=== PATIENT | male | born 1970 | race Caucasian/White ===

== ENCOUNTER 2017-02-20 00:02 | Inpatient (IN) | payer OTHER ==
[2017-02-20] VITALS (8 sets, daily range): BP systolic 138–158; BP diastolic 79–85; PULSE 69–80; RESP 13–18; TEMP 97–98.8; O2SAT 96–100
[~2017-02-20] VITALS: Ht 177.8 cm; Wt 95.0 kg
[2017-02-20] MEDS ORDERED: ceFAZolin 2 GM PREMIX 50 ML ONE ×2 (00:10→10:19)
[2017-02-20] MEDS ORDERED: DIPHTH/TETANUS/ACEL PERTUSSIS (BOOSTER) 0.5 ML VIAL/PFS IM ONE ×2 (00:10→01:18)
[2017-02-20] MEDS ORDERED: ONDANSETRON HCL 4 MG/2 ML VIAL ONE (00:10)
[2017-02-20] MEDS ORDERED: MORPHINE SULFATE 8 MG/ML INJ ONE ×2 (00:10→00:19)
[2017-02-20 00:23] LABS: I-STAT POTASSIUM 3.5 MMOL/L (3.5-4.9); I-STAT SODIUM 143 MMOL/L (138-146)
[2017-02-20] MEDS ORDERED: CHLORHEXIDINE GLUCONATE 2 % 1 PACK (2 CLOTHS) TOP PRN (00:30)
[2017-02-20] MEDS ORDERED: ENALAPRILAT 1.25 MG/ML VIAL IV PRN (00:30)
[2017-02-20] MEDS ORDERED: NALOXONE HCL 0.4 MG/ML AMP IV PUSH PRN (00:30)
[2017-02-20] MEDS ORDERED: MAGNESIUM HYDROXIDE SUSP 30 ML CUP PO PRN (00:30)
[2017-02-20] MEDS ORDERED: MISCELLANEOUS NURSING INFORMATION XX SCH (00:30)
[2017-02-20] MEDS ORDERED: ceFAZolin 2 GM PREMIX 50 ML IV STA (00:30)
[2017-02-20] MEDS ORDERED: SODIUM CHLORIDE 0.9% FLUSH 10 ML FLUSH IV FLUSH PRN (00:30)
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
[2017-02-20 00:33] LABS: AUTOMATED NEUTROPHIL # 5.6 TH/MM3 (1.8-7.7); BASOPHIL # 0.1 TH/MM3 (0-0.2); BASOPHIL % 0.7 % (0.0-2.0); EOSINOPHIL # 0.4 TH/MM3 (0-0.4); EOSINOPHIL % 3.8 % (0.0-4.0); HEMATOCRIT 45.5 % (39.0-51.0); HEMO FLAGS DIFF FINAL; LYMPH % 38.1 % (9.0-44.0); LYMPHOCYTE # 4.5 TH/MM3 (1.0-4.8); MEAN CELL VOLUME 92.2 FL (80.0-100.0); MEAN CORPUSCULAR HEMOGLOBIN 31.4 PG (27.0-34.0); MONO % 9.8 % (0.0-8.0); NEUT % 47.6 % (16.0-70.0); PLATELET COUNT 254 TH/MM3 (150-450); RED BLOOD COUNT 4.93 MIL/MM3 (4.50-5.90); RED CELL DISTRIBUTION WIDTH 13.3 % (11.6-17.2); WHITE BLOOD COUNT 11.7 TH/MM3 (4.0-11.0)
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
[2017-02-20 00:41] LABS: APTT (PATIENT) 21.2 SEC (24.3-30.1); INTERNATIONAL NORMALIZED RATIO 0.9 RATIO; PROTHROMBIN TIME - PATIENT 10.1 SEC (9.8-11.6)
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
[2017-02-20 00:45] LABS: ALCOHOL LESS THAN 3 MG/DL (0-5)
[2017-02-20] MEDS ORDERED: IOHEXOL 350 MG/ML 10 ML VIAL (for RAD DIAG) IVCONTRAST ONE (00:45)
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
[2017-02-20] MEDS: MORPHINE SULFATE 30 MG/30 ML PCA IV SCH (01:29)
[2017-02-20] MEDS ORDERED: ONDANSETRON HCL 4 MG/2 ML VIAL IV ONE (01:30)
[2017-02-20] MEDS ORDERED: MORPHINE SULFATE 4 MG/ML INJ IV ONE (01:30)
[2017-02-20] MEDS: CHLORHEXIDINE GLUCONATE 2 % 1 PACK (2 CLOTHS) TOP SCH (04:00)
[2017-02-20] MEDS: PCA - TOTAL MG MORPHINE DELIVERED PER SHIFT SCH ×2 (06:00→22:00)
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
[2017-02-20] MEDS: PANTOPRAZOLE SODIUM 40 MG VIAL IVP SCH (07:05)
[2017-02-20] MEDS: SODIUM CHLOR 0.9% 1000 ML INJ 1,000 ML IV SCH ×2 (07:07→20:27)
[2017-02-20] MEDS ORDERED: LACTULOSE SYRUP 20 GM/30 ML CUP PO PRN (07:45)
[2017-02-20] MEDS: DOCUSATE SODIUM 50 MG/SENNA 8.6 MG TAB PO SCH ×2 (08:37→20:12)
[2017-02-20] MEDS: BACITRACIN TOP OINT 15 GM TUBE TOP SCH ×2 (08:37→22:04)
[2017-02-20] MEDS ORDERED: SODIUM CHLOR 0.9% 250 ML INJ 250 ML ONE (09:08)
[2017-02-20] MEDS ORDERED: VANCOMYCIN HCL 1000 MG VIAL ONE (09:08)
[2017-02-20] MEDS ORDERED: GENTAMICIN SULFATE 80 MG/2 ML VIAL ONE (09:08)
[2017-02-20] MEDS ORDERED: FAMOTIDINE 20 MG/2 ML VIAL ONE (09:25)
[2017-02-20] MEDS ORDERED: ACETAMINOPHEN 1000 MG/100 ML 100 ML IV ONE ×2 (09:25→09:56)
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
[2017-02-20] MEDS ORDERED: LIDOCAINE HCL 1% PF 5 ML AMPULE OTHER ONE (12:00)
[2017-02-20] MEDS ORDERED: DEXAMETHASONE SOD PHOS 4 MG/ML VIAL IV ONE (12:00)
[2017-02-20] MEDS ORDERED: KETOROLAC TROMETHAMINE 30 MG/ML (IVP) VIAL IV PUSH ONE (12:00)
[2017-02-20] MEDS ORDERED: diphenhydrAMINE HCL 25 MG CAP PO PRN (12:00)
[2017-02-20] MEDS ORDERED: ONDANSETRON HCL 4 MG/2 ML VIAL IV PUSH ONE (12:00)
[2017-02-20] MEDS ORDERED: PHENYLEPH/NS 1000 MCG/10 ML SYR IV ONE (12:00)
[2017-02-20] MEDS ORDERED: PROPOFOL 200 MG/20 ML AMP IV ONE (12:00)
[2017-02-20] MEDS ORDERED: ERGOCALCIFEROL (VIT D2) 50,000 UNIT CAP PO SCH (12:00)
[2017-02-20] MEDS ORDERED: LACTATED RINGER'S 1000 ML INJ 1,000 ML IV ONE (12:00)
[2017-02-20] MEDS ORDERED: MIDAZOLAM HCL 2 MG/2 ML VIAL IV ONE (12:00)
[2017-02-20] MEDS ORDERED: MORPHINE SULFATE 4 MG/ML INJ IV PUSH PRN (12:00)
--- NOTE | 2017-02-20 12:02 | PD.OP ---
cc: Ricardo Langley MD Operative Report Date of Surgery: Feb 20, 2017 Preoperative Diagnosis: Segmental left tibia shaft fracture, nondisplaced medial malleolus fracture Postoperative Diagnosis: Procedure: Reduction and intramedullary nail fixation left tibia Anesthesia: Gen. Surgeon: Ricardo Langley Practical Nursing Teacher(s): KOLE Cowan PA-C The surgical procedure was assisted by my physician assistant foreman. My P.A. presence was necessary throughout this case for the manipulation and positioning of the surgical extremity. My P.A. was assisting me throughout the duration of this procedure. The skill set of a physician assistant foreman was medically necessary to complete this procedure. During the surgical case the reliability technicians was working at the back table and the physician assistant foreman was directly assisting me. Operation and Findings: Implants: ITS [10]mm x [360]mm tibial nail Plan of activity: Nonweightbearing left leg Patient was seen and examined preoperatively. An informed consent was obtained from patient after detailed discussion of risk and benefits. Risks of surgery include bleeding, infection, painful hardware, nonunion, malunion, leg length discrepancy, need for hardware removal, and medical complications associated with anesthesia including blood clots, stroke, heart attack, and were discussed. Operative site was marked. Patient was brought to the operating room placed on or table. Patient received IV antibiotics and was given IV sedation GETA. Left leg was prepped with alcohol Hibiclens and draped in usual sterile fashion. Timeout procedure was performed Procedure began with reduction of fracture. Patient had a proximal and distal tibia shaft fracture. 2 small incisions were made around both the proximal and distal fracture sites. Percutaneous clamps were placed. Traction was applied. Fractures were reduced. There was comminution of the fracture. The fractures reduced and excellent alignment was achieved. Fracture clamps were used to aid in reduction. Next a 3 cm incision was made proximal to the patella. Quadriceps tendon was split in line with fibers. Cannulas were placed in the patellofemoral joint to protect the articular surface at all times. A guidepin was placed into the tibia and advanced in the tibial canal. Fluoroscopy was used to confirm appropriate guidepin placement. An opening reamer was used to open the tibial canal. A ball-tipped guidewire was advanced down the tibial canal. Guidepin was passed across the fracture site into the center of the distal tibia. Fluoroscopy confirmed guidepin placement. The nail length was now measured. At this point the locking screws were placed into the proximal segment and distal segment to help maintain alignment of the fracture. The fracture was now held in a reduced position and the canal was reamed. The canal was reamed up to appropriate size. A ITS nail was now selected. Next the nail was fully seated. Using perfect reno-sparks technique 3 distal interlocking screws were placed. Using the insertion handle as a guide 3 proximal interlocking screws were placed. Fluoroscopy confirmed excellent of fracture with well-placed hardware. Patient also had a minimally displaced medial malleolus fracture. This will be treated closed. Incisions and the knee joint were thoroughly irrigated with sterile saline. Fascia was closed with #1 Vicryl, subcutaneous tissues closed with 3-0 Vicryl and skin was closed with angelina. Sterile dressings were applied. Patient was awakened and transferred to recovery in stable condition. Ricardo Langley MD Feb 20, 2017 12:02
[2017-02-20] MEDS: LACTATED RINGER'S 1000 ML INJ 1,000 ML IV SCH ×2 (12:30→22:04)
[2017-02-20] MEDS: CALCIUM/VITAMIN D 250 MG/125 U TAB PO SCH ×2 (13:00→18:00)
--- NOTE | 2017-02-20 13:31 | RADRPT ---
EXAM DATE/TIME: 02/20/2017 11:37 [facility] COMPARISON: No previous studies available for comparison. INDICATIONS : ORIF left tibia fracture. MEDICAL HISTORY : Unobtainable. SURGICAL HISTORY : Unobtainable. ENCOUNTER: Subsequent ACUITY: 2 days PAIN SCORE: Non-responsive. LOCATION: Left tibia. FINDINGS: Intramedullary hemalatha is present. Alignment is anatomic. Locking pins are seen above and below the fra cture. CONCLUSION: Anatomic alignment. Feliciano Reveles MD FACR on February 20, 2017 at 13:29 Board Certified Radiologist. This report was verified electronically.
[2017-02-20] MEDS ORDERED: *LABETALOL HCL 100 MG/20 ML VIAL PERIprocedural Use ONLY ONE (14:46)
--- NOTE | 2017-02-20 15:50 | OTSOAPIP ---
TIME SESSION COMPLETED: PM RECEIVED OCCUPATIONAL THERAPY ORDERS. ATTEMPTED TO SEE PATIENT, HOWEVER PATIENT REMAINS OFF FLOOR POST SURGERY ANESTHESIA. INTERDISCIPLINARY COMMUNICATION: REVIEWED ELECTRONIC MEDICAL RECORD Therapist: Tessa Kingston OTR/Sarah Signature on file
[2017-02-20] MEDS ORDERED: SENN1TAB PO (16:23)
[2017-02-20] MEDS: ceFAZolin 2 GM PREMIX 50 ML IV SCH (19:28)
[2017-02-20] MEDS: ONDANSETRON HCL 4 MG/2 ML VIAL IV PRN (19:28)
[2017-02-20] MEDS ORDERED: DOCUSATE SODIUM 100 MG CAP PO SCH (21:00)
[2017-02-20] MEDS: VANCOMYCIN INJ 1,000 MG in SODIUM CHLOR 0.9% 250 ML INJ 250 ML IV SCH (22:04)
[2017-02-20] MEDS: ENOXAPARIN SODIUM 40 MG/0.4 ML SYRINGE SQ SCH (23:51)
[2017-02-21] VITALS: BP 120/73; PULSE 73; RESP 17; TEMP 96.4; O2SAT 100
[2017-02-21] MEDS: MORPHINE SULFATE 30 MG/30 ML PCA IV SCH (00:12)
[2017-02-21] MEDS: PANTOPRAZOLE SODIUM 40 MG VIAL IVP SCH (01:34)
[2017-02-21] MEDS: ceFAZolin 2 GM PREMIX 50 ML IV SCH ×2 (01:34→08:10)
[2017-02-21] MEDS: SODIUM CHLOR 0.9% 1000 ML INJ 1,000 ML IV SCH (03:07)
[2017-02-21 04:00] VITALS: BP 142/79; PULSE 70; RESP 16; TEMP 98.5; O2SAT 99
[2017-02-21] MEDS: CHLORHEXIDINE GLUCONATE 2 % 1 PACK (2 CLOTHS) TOP SCH (04:00)
[2017-02-21] MEDS: PCA - TOTAL MG MORPHINE DELIVERED PER SHIFT SCH ×2 (05:53→06:00)
[2017-02-21] MEDS ORDERED: XARE10TA PO (06:36)
[2017-02-21] MEDS ORDERED: WALKER/ADULT/FO1 MIS (06:36)
[2017-02-21] MEDS ORDERED: HYDR-3583 PO (06:36)
--- NOTE | 2017-02-21 06:39 | PD.ORT.PN ---
Subjective Subjective Remarks POD 1 s/p IMN left tibia s/p left foot pain and swelling Objective Vitals Vital Signs Date Time Temp Pulse Resp B/P (MAP) Pulse Ox O2 Delivery O2 Flow Rate FiO2 02/21/17 06:00 17 02/21/17 04:00 98.5 70 16 142/79 (100) 99 02/21/17 00:25 17 02/21/17 00:12 18 02/21/17 00:00 96.4 73 17 120/73 (89) 100 02/20/17 22:00 17 02/20/17 20:32 97 21 02/20/17 20:00 96 Room Air 02/20/17 19:00 97.0 80 17 138/79 (98) 96 02/20/17 16:00 98.8 78 18 158/81 (106) 97 02/20/17 16:00 98.2 70 14 141/81 (101) 100 Room Air 02/20/17 15:30 63 14 153/84 (107) 100 Room Air 02/20/17 15:00 61 14 168/94 (118) 100 Nasal Cannula 2 02/20/17 14:30 68 14 181/99 (126) 100 Nasal Cannula 2 02/20/17 14:00 73 14 167/102 (123) 100 Nasal Cannula 2 02/20/17 13:30 77 14 164/100 (121) 100 Nasal Cannula 2 02/20/17 13:15 70 14 162/96 (118) 100 Nasal Cannula 2 02/20/17 13:00 72 14 169/93 (118) 99 Nasal Cannula 2 02/20/17 12:45 72 14 159/86 (110) 99 Nasal Cannula 3 02/20/17 12:30 83 14 152/89 (110) 98 Nasal Cannula 3 02/20/17 12:26 98.3 95 14 166/102 (123) 96 Nasal Cannula 3 02/20/17 08:45 98 Room Air 02/20/17 08:00 98.2 71 13 155/85 (108) 100 02/20/17 08:00 69 02/20/17 07:00 99 Nasal Cannula 2.00 21 I/O 02/20/17 02/20/17 02/20/17 02/21/17 02/21/17 02/21/17 07:00 15:00 23:00 07:00 15:00 23:00 Intake Total 1541 ml 1279 ml 1672 ml Output Total 1000 ml 50 ml 650 ml 950 ml Balance -1000 ml 1491 ml 629 ml 722 ml Intake Oral 480 ml 480 ml IV Total 291 ml 799 ml 1192 ml Other 1250 ml Output Urine Total 1000 ml 650 ml 950 ml Estimated Blood Loss 50 ml # Voids 1 # Bowel Movements 0 0 Result Diagram: 02/20/17 0007 Objective Remarks LLE: dressings clean and dry. intact. +short leg splint. NVI. notable swelling in foot Assessment & Plan Assessment and Plan 1) Left Tibia Fx s/p IMN - POD 1 -NWB -maintain splint -elevate -laney order xrays of left foot today due to swelling and bruising -scripts on chart -plan for DC home tomorrow if doing well -f/u with Jose or JAYRO in 2 weeks Rey Chacon Feb 21, 2017 06:39
[2017-02-21 07:03] LABS: AUTOMATED NEUTROPHIL # 5.6 TH/MM3 (1.8-7.7); BASOPHIL # 0.3 TH/MM3 (0-0.2); EOSINOPHIL # 0.1 TH/MM3 (0-0.4); EOSINOPHIL % 0.9 % (0.0-4.0); HEMATOCRIT 34.1 % (39.0-51.0); HEMO FLAGS DIFF FINAL; LYMPH % 19.6 % (9.0-44.0); LYMPHOCYTE # 1.7 TH/MM3 (1.0-4.8); MEAN CELL VOLUME 93.9 FL (80.0-100.0); MEAN CORPUSCULAR HGB CONC 34.1 % (32.0-36.0); MONO % 10.2 % (0.0-8.0); NEUT % 66.3 % (16.0-70.0); PLATELET COUNT 162 TH/MM3 (150-450); RED BLOOD COUNT 3.63 MIL/MM3 (4.50-5.90); RED CELL DISTRIBUTION WIDTH 13.5 % (11.6-17.2); WHITE BLOOD COUNT 8.5 TH/MM3 (4.0-11.0)
[2017-02-21 07:36] LABS: BICARBONATE 26.1 MEQ/L (21.0-32.0); POTASSIUM 3.9 MEQ/L (3.5-5.1)
[2017-02-21 08:00] VITALS: BP 123/73; PULSE 70; RESP 16; TEMP 97.5; O2SAT 97
[2017-02-21] MEDS: CALCIUM/VITAMIN D 250 MG/125 U TAB PO SCH ×3 (08:02→17:08)
[2017-02-21] MEDS: CHOLECALCIFEROL (VIT D3) 1000 UNIT TAB PO SCH (08:02)
[2017-02-21] MEDS: DOCUSATE SODIUM 50 MG/SENNA 8.6 MG TAB PO SCH ×2 (08:03→20:01)
[2017-02-21] MEDS: ASCORBIC ACID 500 MG TAB PO SCH (08:03)
[2017-02-21] MEDS: BACITRACIN TOP OINT 15 GM TUBE TOP SCH ×2 (08:04→20:04)
[2017-02-21] MEDS: FAMOTIDINE 20 MG TAB PO SCH ×2 (08:09→20:01)
[2017-02-21] MEDS: LACTULOSE SYRUP 20 GM/30 ML CUP PO SCH (08:10)
[2017-02-21] MEDS ORDERED: ALLO300T2 PO (08:24)
[2017-02-21] MEDS ORDERED: LISI40TA PO (08:25)
[2017-02-21] MEDS ORDERED: ATOR20TA15 PO (08:25)
--- NOTE | 2017-02-21 09:31 | RADRPT ---
EXAM DATE/TIME: 02/21/2017 08:31 [facility] COMPARISON: TIBIA/FIBULA LEFT (AP/LAT), February 20, 2017, 11:37. INDICATIONS : Evaluate left foot fractures. MEDICAL HISTORY : None. SURGICAL HISTORY : ORIF left lower leg. ENCOUNTER: Initial ACUITY: 2 days PAIN SCORE: 6/10 LOCATION: Left foot. FINDINGS: Three view examination of the left foot demonstrates a displaced intra-articular fracture at involvin g the fifth metatarsal head. No dislocation. There is hemalatha and screw fixation of the distal tibia. The re is a questionable fracture of the fourth metatarsal head as well. CONCLUSION: 1. Intra-articular fracture of the fifth left metatarsal head and possibly the fourth metatarsal head as well. Michael Cantor MD on February 21, 2017 at 9:26 Board Certified Radiologist. This report was verified electronically.
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
[2017-02-21 12:00] VITALS: BP 135/82; PULSE 87; RESP 16; TEMP 98; O2SAT 95
[2017-02-21] MEDS: ONDANSETRON HCL 4 MG/2 ML VIAL IV PRN (12:00)
[2017-02-21] MEDS: VANCOMYCIN INJ 1,000 MG in SODIUM CHLOR 0.9% 250 ML INJ 250 ML IV SCH (12:00)
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
[2017-02-21 16:00] VITALS: BP 154/82; PULSE 71; RESP 16; TEMP 96.5; O2SAT 99
[2017-02-21] MEDS: ACETAMINOPHEN/HYDROcodone 325 MG/10 MG TAB PO PRN ×3 (17:00→23:49)
[2017-02-21] MEDS: ALLOPURINOL 300 MG TAB PO SCH (17:08)
[2017-02-21] MEDS: LISINOPRIL 20 MG TAB PO SCH (17:08)
[2017-02-21 19:00] VITALS: BP 122/63; PULSE 82; RESP 18; TEMP 98.2; O2SAT 98
[2017-02-21] MEDS ORDERED: MAGNESIUM HYDROXIDE SUSP 30 ML CUP PO SCH (21:00)
[2017-02-21] MEDS ORDERED: ATORVASTATIN 20 MG TAB PO SCH (21:00)
[2017-02-21] MEDS: ENOXAPARIN SODIUM 40 MG/0.4 ML SYRINGE SQ SCH (23:48)
[2017-02-22] VITALS: BP 135/65; PULSE 81; RESP 15; TEMP 97.8; O2SAT 97
[2017-02-22] MEDS: ACETAMINOPHEN/HYDROcodone 325 MG/10 MG TAB PO PRN ×5 (03:44→17:12)
--- NOTE | 2017-02-22 06:23 | PD.ORT.PN ---
Subjective Subjective Remarks Pain controlled. No new complaints Objective Vitals Vital Signs Date Time Temp Pulse Resp B/P (MAP) Pulse Ox O2 Delivery O2 Flow Rate FiO2 02/22/17 00:00 97.8 81 15 135/65 (88) 97 02/21/17 20:00 98 Room Air 02/21/17 19:00 98.2 82 18 122/63 (82) 98 02/21/17 16:00 96.5 71 16 154/82 (106) 99 02/21/17 12:00 98.0 87 16 135/82 (99) 95 02/21/17 08:00 97.5 70 16 123/73 (90) 97 I/O 02/21/17 02/21/17 02/21/17 02/22/17 02/22/17 02/22/17 07:00 15:00 23:00 07:00 15:00 23:00 Intake Total 1672 ml 700 ml 730 ml 480 ml Output Total 950 ml 1200 ml 700 ml 950 ml Balance 722 ml -500 ml 30 ml -470 ml Intake Oral 480 ml 600 ml 480 ml 480 ml IV Total 1192 ml 100 ml 250 ml Output Urine Total 950 ml 1200 ml 700 ml 950 ml # Bowel Movements 0 0 0 0 Result Diagram: 02/21/17 0552 02/21/17 0552 Imaging Last 72 hours Impressions Hand X-Ray 02/21/17 0000 Signed Impressions: Service Date/Time: February 12:31 - CONCLUSION: 1. No acute findings. Michael Cantor MD Foot X-Ray 02/21/17 0000 Signed Impressions: Service Date/Time: February 08:31 - CONCLUSION: 1. Intra-articular fracture of the fifth left metatarsal head and possibly the fourth metatarsal head as well. Michael Cantor MD Pelvis X-Ray 02/20/17 000 Signed Impressions: Service Date/Time: Sunday, February 19, 2017 23:57 - CONCLUSION: Unremarkable examination of the pelvis. David Devi Jr., MD Head CT 02/20/175 Signed Impressions: Service Date/Time: Monday, February 20, 2017 00:25 - CONCLUSION: Normal examination. David Devi Jr., MD Chest X-Ray 02/20/175 Signed Impressions: Service Date/Time: Sunday, February 19, 2017 23:57 - CONCLUSION: No acute disease. Study is motion degraded. David Devi Jr., MD Chest CT 02/20/175 Signed Impressions: Service Date/Time: Monday, February 20, 2017 00:31 - CONCLUSION: 1. Left scapular fracture. Otherwise, unremarkable exam. David Devi Jr., MD Cervical Spine CT 02/20/175 Signed Impressions: Service Date/Time: Monday, February 20, 2017 00:25 - CONCLUSION: 1. No fracture or dislocation. 2. Degenerative changes at C5-C6 and C6-C7. David Devi Jr., MD Abdomen/Pelvis CT 02/20/175 Signed Impressions: Service Date/Time: Monday, February 20, 2017 00:31 - CONCLUSION: Normal examination. David Devi Jr., MD Tibia/Fibula X-Ray 02/20/17 Signed Impressions: Service Date/Time: Monday, February 20, 2017 11:37 - CONCLUSION: Anatomic alignment. Feliciano Reveles MD FACR Tibia/Fibula X-Ray 02/20/17 Signed Impressions: Service Date/Time: Sunday, February 19, 2017 23:57 - CONCLUSION: Multiple fractures as detailed above. David Devi Jr., MD Knee X-Ray 02/20/17 Signed Impressions: Service Date/Time: Sunday, February 19, 2017 23:57 - CONCLUSION: No gross abnormality on this single limited view of the right knee. David Devi Jr., MD Foot X-Ray 02/20/17 Signed Impressions: Service Date/Time: Sunday, February 19, 2017 23:57 - CONCLUSION: No gross abnormality on this limited single projection. David Devi Jr., MD Aorta w/Runoff CTA 02/20/17 Signed Impressions: Service Date/Time: Monday, February 20, 2017 00:31 - CONCLUSION: 1. The fracture involving the tibia affects the anterior tibial artery with a 4 cm segment of occlusion. There is reconstitution with patency to the dorsalis pedis artery. Peroneal and posterior tibial artery are patent. 2. Patent inflow, a flow, and runoff on the right. David Devi Jr., MD Objective Remarks Left lower extremity: Clean dry dressings intact. Splint in place. Intact sensation in all toes. Good capillary refills Assessment & Plan Assessment and Plan 1) Left Tibia Fx s/p IMN - POD 2 -NWB -maintain splint -elevate -scripts on chart -plan for DC home today if doing well -f/u with [facility] or [facility] in 2 weeks 2) left scapula fracture Nonoperative treatment. May be weightbearing as tolerated for ambulation using a walker Karl Ho Jr. Feb 22, 2017 06:23
[2017-02-22] MEDS ORDERED: WHEEMIS3 (06:25)
[2017-02-22 08:00] VITALS: BP 134/68; PULSE 82; RESP 18; TEMP 97.5; O2SAT 98
[2017-02-22] MEDS: ALLOPURINOL 300 MG TAB PO SCH (10:01)
[2017-02-22] MEDS: LACTULOSE SYRUP 20 GM/30 ML CUP PO SCH (10:01)
[2017-02-22] MEDS: FAMOTIDINE 20 MG TAB PO SCH (10:02)
[2017-02-22] MEDS: CHOLECALCIFEROL (VIT D3) 1000 UNIT TAB PO SCH (10:02)
[2017-02-22] MEDS: CALCIUM/VITAMIN D 250 MG/125 U TAB PO SCH ×3 (10:02→17:12)
[2017-02-22] MEDS: DOCUSATE SODIUM 50 MG/SENNA 8.6 MG TAB PO SCH (10:02)
[2017-02-22] MEDS: LISINOPRIL 20 MG TAB PO SCH (10:02)
[2017-02-22] MEDS: ASCORBIC ACID 500 MG TAB PO SCH (10:03)
[2017-02-22] MEDS: BACITRACIN TOP OINT 15 GM TUBE TOP SCH (10:05)
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
[2017-02-22 12:00] VITALS: BP 107/56; PULSE 76; RESP 18; TEMP 97.3; O2SAT 100
[2017-02-22 16:00] VITALS: BP 112/59; PULSE 74; RESP 18; TEMP 96.7; O2SAT 98
== END 2017-02-22 17:37 | disposition home or self-care (01) | DRG 493 ==
LOC: NEPI 00:02 → EDBD 00:59 → NEDA 00:59 → N03A 01:03 → N06B 13:00 → N06A 16:20 → UNDODISIN 02-21 13:08
PROVIDERS: ADMIT Surgery; ATTEND Surgery
PROC: 0QSHXZZ Reposition Left Tibia, External Approach (ICD-10-PCS; 2017-02-20)
PROC: 0QSH06Z Reposition Left Tibia with Intramedullary Internal Fixation Device, Open Approach (ICD-10-PCS; principal; 2017-02-20 10:14)
DX: S82.262A Displaced segmental fracture of shaft of left tibia, initial encounter for closed fracture (principal); S06.0X1A Concussion with loss of consciousness of 30 minutes or less, initial encounter; I10 Essential (primary) hypertension; S42.192A Fracture of other part of scapula, left shoulder, initial encounter for closed fracture; S82.55XA Nondisplaced fracture of medial malleolus of left tibia, initial encounter for closed fracture; E78.5 Hyperlipidemia, unspecified; M10.9 Gout, unspecified; K21.9 Gastro-esophageal reflux disease without esophagitis; I77.1 Stricture of artery; S92.342A Displaced fracture of fourth metatarsal bone, left foot, initial encounter for closed fracture; S92.352A Displaced fracture of fifth metatarsal bone, left foot, initial encounter for closed fracture; V23.4XXA Motorcycle driver injured in collision with car, pick-up truck or van in traffic accident, initial encounter
CPT/HCPCS: 70450; 71010; 71260; 72125; 72170; 73130; 73560; 73590; 73630; 74177; 75635; 76000; 80048; 80307; 82435; 82565; 82947; 84132; 84295; 84520; 85025; 85384; 85610; 85730; 86850; 86900; 86901; 86920; 87641; 90471; 90715; 94150; 96374; 96375; 99291; C1713; C9113; G0390; J0131; J0690; J1100; J1580; J1650; J1885; J2250; J2270; J2370; J2405; J3010; J3370; J7050; J7120; L1830; Q9967